=== PATIENT | female | born 1960 | race Caucasian/White ===

== ENCOUNTER 2024-03-17 10:16 | Outpatient (CLI) | payer MEDICAID ==
[~2024-03-17 10:16] MED LIST: NO HOME MEDS
== END 2024-03-17 23:59 | disposition home or self-care (01) ==
LOC: RAD 10:16
PROVIDERS: ATTEND Podiatrist Foot & Ankle Surgery
DX: M21.6X1 Other acquired deformities of right foot (principal); M19.071 Primary osteoarthritis, right ankle and foot; M25.374 Other instability, right foot; M79.671 Pain in right foot; M79.89 Other specified soft tissue disorders
CPT/HCPCS: 73700

== ENCOUNTER 2025-07-13 13:40 | Outpatient (CLI) | payer MEDICAID ==
--- NOTE | 2025-07-13 16:24 | RADIOLOGY REPORT ---
INDICATION: HALLUX RIGIDUS RIGHT FOOT,HALLUX VALGUS (ACQUIRED), RIGHT FOOT COMPARISON: CT CT LOWER EXTREMITY on DOS: 03/17/24 TECHNIQUE: CT of the right foot was performed without contrast. Volume transverse images were obtained and reconstructed in multiple planes using bone and soft tissue algorithms. Radiation Dose Information: CT Dose: CTDI volume is 14.36 mGy. Dose-length product is 400.81 mGy*cm FINDINGS: Medial plate and screw fixation hardware attempted arthrodesis of the 1st TMT joint as well as a dorsal plate and screw fixation hardware for attempted arthrodesis of the 1st MTP joint. Partial bony fusion and the 1st TMT joint although the articular surface remains predominantly visualized. Relatively minimal bony fusion of the 1st MTP joint with resorptive changes at the joint line. No hardware fracture. No other fracture or malalignment. IMPRESSION: Postsurgical changes related to 1st TMT and 1st MTP arthrodesis with hardware appearing intact. Mild resorptive changes at the 1st TMT joint which could be reactive and secondary to normal early fusion. Please correlate with any concern for infection of the 1st MTP joint which could have a similar appearance although favored much less likely. All CT scans at this medical facility are performed using dose modulation techniques as appropriate to a performed exam including the following: Automated exposure control was utilized; adjustment of the MA and/or KV according to patient size; and use of iterative reconstruction technique.
== END 2025-07-13 23:59 | disposition home or self-care (01) ==
LOC: RAD 13:40
PROVIDERS: ATTEND Podiatrist Foot & Ankle Surgery
DX: M19.071 Primary osteoarthritis, right ankle and foot (principal); M20.21 Hallux rigidus, right foot; M20.11 Hallux valgus (acquired), right foot; M25.374 Other instability, right foot; M79.671 Pain in right foot; Z72.0 Tobacco use; Z98.1 Arthrodesis status
CPT/HCPCS: 73700

== ENCOUNTER 2025-08-16 22:22 | Emergency (ER) | payer MEDICARE, MEDICAID ==
[2025-08-16 22:36] VITALS: BP 149/89; PULSE 85; RESP 15; O2SAT 98
[2025-08-16 23:02] VITALS: TEMP 97.6
--- NOTE | 2025-08-16 23:05 | Physician Documentation ---
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 Presents to the emergency department for wound care and for tetanus update. No loss of consciousness. No current bleeding Medication Reconciliation Allergies: Coded Allergies: meperidine HCl (Verified Allergy, Unknown, 08/16/25) Miscellaneous Medications Home Med List (No Home Medications), (Reported) Past Medical History Past Medical History: No Pertinent History Past Surgical History: , orthopedic surgeries, tonsillectomy Smoking: Cigarettes Alcohol Use: Occasionally Drug Use: marijuana Lives with: Alone Lives In: Home Occupation: employed Review of Systems All Other Systems at this time: Reviewed and Negative Physical Exam Physical Exam Vital Signs: RN Vital Signs have been reviewed: Yes, Temperature: 97.6, Source: Temporal, Heart Rate: 85, Respiratory Rate: 15, BP: 149/89, Pulse Oximetry: 98 General Appearance: alert, WD/WN, no apparent distress Head: laceration (Official to the crown) Face: normal inspection Pupils/EOM/Fundus: PERRLA Neck: non-tender Respiratory: no respiratory distress Chest: no accessory muscle use Cardiovascular: normal peripheral pulses Gastrointestinal: non-tender Extremities: normal range of motion Neurologic: oriented x4, 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 Scalp was cleansed in the emergency department. Tetanus was provided. Aftercare instructions and wound care instructions provided for rinku nt. Discharged while alert grossly neurologically intact without focal neuro deficits. Differential Diagnosis Differentials include: Scalp laceration working diagnosis not requiring wound closure, no clinical suspicion for intracranial injury and/or skull fracture. Departure Disposition: HOME / SELF CARE / HOMELESS Impression: Primary Impression: Scalp laceration Qualified Codes: S01.01XA - Laceration without foreign body of scalp, initial encounter Condition: Stable Discharge Instructions: Facial or Scalp Contusion, Sokp-ey-Kges Additional Instructions: Tonight in the emergency department you received a tetanus update and wound care to your scalp. Superficial lacerations as not need closure. Please keep wound clean and dry and watch for signs of infection. Return to the emergency department as needed. Referrals: NO PRIMARY CARE PROVIDER (PCP) Education Educated: Patient Educated regarding: diagnosis, treatment, prognosis, need for follow up Signature Scribe Signature: . Attestation: . VIBHA ZAMORA PAC Aug 16, 2025 23:05
[2025-08-16] MEDS: TETanus/Pertussis (Acell)/Diphther VAC/PF (Tdap-Adult) 0.5ml syringe IMVAC ONE (23:16)
== END 2025-08-16 23:20 | disposition home or self-care (01) ==
LOC: ER 22:22
DX: S01.01XA Laceration without foreign body of scalp, initial encounter (principal); F12.90 Cannabis use, unspecified, uncomplicated; F17.210 Nicotine dependence, cigarettes, uncomplicated; Z90.89 Acquired absence of other organs; X58.XXXA Exposure to other specified factors, initial encounter; Y93.89 Activity, other specified; Y92.89 Other specified places as the place of occurrence of the external cause; Y99.8 Other external cause status; Z72.89 Other problems related to lifestyle; Z60.2 Problems related to living alone; Z98.890 Other specified postprocedural states
CPT/HCPCS: 90471; 90715; 99283